=== PATIENT | male | born 1980 | race Caucasian/White ===

== ENCOUNTER 2018-05-19 14:55 | Emergency (ER) | payer OTHER ==
[~2018-05-19] VITALS: Ht 185.4 cm; Wt 86.2 kg
[2018-05-19] MEDS ORDERED: HYDRALAZINE HCL50 MG PO (15:10)
== END 2018-05-19 16:36 | disposition home or self-care (01) ==
LOC: ED 14:55
DX: R20.2 Paresthesia of skin (principal); Z87.891 Personal history of nicotine dependence; Z79.899 Other long term (current) drug therapy
CPT/HCPCS: 29125; 99282